=== PATIENT | male | born 1955 | race Caucasian/White ===

== ENCOUNTER 2017-12-30 09:31 | Day surgery (SDC) | payer BC ==
[~2017-12-30] VITALS: Ht 182.9 cm; Wt 90.9 kg
[2017-12-30 10:03] VITALS: BP 139/70
[2017-12-30] MEDS ORDERED: ATOR40TA78 PO (10:13)
[2017-12-30] MEDS ORDERED: IBUP-1222 PO (10:13)
[2017-12-30] MEDS ORDERED: DIAZ5TAB4 PO (10:13)
[2017-12-30] MEDS ORDERED: CHOL100012 PO (10:13)
[2017-12-30] MEDS ORDERED: METO25TA35 PO (10:13)
[2017-12-30] MEDS ORDERED: ASPIRIN 325 MG TABLET EC ONE (10:19)
[2017-12-30] MEDS ORDERED: PLEASE ENTER HEIGHT AND WEIGHT MC SCH (10:30)
[2017-12-30] MEDS ORDERED: PLEASE ENTER ALLERGIES MC SCH (10:30)
[2017-12-30 10:54] LABS: BASOPHILS # (AUTO) 0.03 x10^3/uL (0-0.1); BASOPHILS % (AUTO) 1 % (0-1); EOSINOPHILS # (AUTO) 0.23 x10^3/uL (0-0.4); EOSINOPHILS % (AUTO) 5 % (1-7); LYMPHOCYTES # (AUTO) 1.68 x10^3/uL (1-3.4); LYMPHOCYTES % (AUTO) 32 % (22-44); MD NO; MEAN CORPUSCULAR HGB CONC 34.7 g/dL (33.2-36.2); MEAN CORPUSCULAR VOLUME 92.3 fL (81-97); MEAN PLATELET VOLUME 8.9 fL (7.4-10.4); MONOCYTES # (AUTO) 0.47 x10^3/uL (0.2-0.8); MONOCYTES % (AUTO) 9 % (2-9); NEUTROPHILS # (AUTO) 2.84 x10^3/uL (1.8-6.8); NEUTROPHILS % (AUTO) 54 % (42-75); PLATELET COUNT 230 x10^3/uL (130-400); RED BLOOD COUNT 4.71 x10^6/uL (4.38-5.82); RED CELL DISTRIBUTION WIDTH 12.9 % (9.4-14.8)
[2017-12-30] MEDS ORDERED: SODIUM CHLORIDE 0.9% 1,000 ML IV ONE (11:00)
[2017-12-30] MEDS ORDERED: ASPIRIN 325 MG TABLET EC PO ONE (11:00)
[2017-12-30 11:01] LABS: ALANINE AMINOTRANSFERASE 32 U/L (12-78); ALBUMIN 3.7 g/dL (3.4-5.0); ANION GAP 6 mmol/L (5-15); CALCIUM 8.5 mg/dL (8.5-10.1); CHLORIDE 109 mmol/L (98-107); CREATININE 0.93 mg/dL (0.7-1.3)
[2017-12-30 11:03] LABS: ALKALINE PHOSPHATASE 57 U/L (45-117); BILIRUBIN,TOTAL 0.7 mg/dL (0.2-1.0); TOTAL PROTEIN 7.2 g/dL (6.4-8.2)
[2017-12-30] MEDS ORDERED: VERAPAMIL 2.5 MG/ML, 2ML ONE (11:30)
[2017-12-30] MEDS ORDERED: MIDAZOLAM 1 MG/ML, 5ML ONE (11:30)
[2017-12-30] MEDS ORDERED: TICAGRELOR 90 MG TABLET ONE (11:30)
[2017-12-30] MEDS ORDERED: FENTANYL PF 100 MCG/2ML ONE (11:30)
[2017-12-30] MEDS ORDERED: HEPARIN 1,000 UNITS/ML, 10ML ONE (11:30)
[2017-12-30] MEDS ORDERED: BIVALIRUDIN 250 MG ONE (11:30)
[2017-12-30] MEDS ORDERED: LIDOCAINE-MPF 2%, 2ML ONE (11:31)
== END 2017-12-30 14:27 | disposition home or self-care (01) ==
LOC: CACL 09:31
PROVIDERS: ATTEND Internal Medicine Cardiovascular Disease
DX: I25.118 Atherosclerotic heart disease of native coronary artery with other forms of angina pectoris (principal); I10 Essential (primary) hypertension; E78.5 Hyperlipidemia, unspecified; Z79.899 Other long term (current) drug therapy
CPT/HCPCS: 36415; 80053; 85025; 93458; 99156; C1769; C1894; J1644; J2250; J3010; J3490; Q9967; J0583